=== PATIENT | male | born 1975 | race Two or more races ===

== ENCOUNTER 2018-10-06 16:27 | Emergency (ER) | payer MEDICAID ==
[~2018-10-06] VITALS: Ht 190.5 cm; Wt 127.3 kg
[2018-10-06 16:52] VITALS: BP 116/92
[2018-10-06] MEDS ORDERED: OXYC20TA71 PO (16:59)
== END 2018-10-06 17:13 | disposition home or self-care (01) ==
LOC: ER 16:28
DX: G89.29 Other chronic pain (principal); Z76.0 Encounter for issue of repeat prescription
CPT/HCPCS: 99283